=== PATIENT | male | born 1980 | race Caucasian/White ===

== ENCOUNTER 2023-01-29 10:07 | Outpatient (CLI) | payer OTHER, SELFPAY ==
--- NOTE | 2023-01-29 10:15 | MR_ITS ---
WS: [id number] MRI BRAIN WITH AND WITHOUT CONTRAST HISTORY: R29.90 - Unspecified symptoms and signs involving the nervous system. Headaches and dizzines s. COMPARISON: None available. TECHNIQUE: Multiplanar imaging performed through the brain with MultiHance 20 ml's IV. No acute infarcts are seen. Douglas-white matter differentiation is well preserved. There is increased T 2 signal bilaterally in the cerebral peduncles but much greater on the LEFT. No additional infarcts. No additional significant small vessel ischemic disease. Ventricles and extra-axial spaces are normal. Clivus and pituitary gland are normal. Visualized posterior fossa and brainstem are also normal. Postcontrast images are negative for masses or vascular malformations. Dural venous sinuses are normal. Paranasal sinuses: Moderate mucous retention cyst in the RIGHT maxillary sinus. No air-fluid levels. Mastoid air cells: Normal. Calvarium and scalp: Normal. MR/MR head wo/w con [id number] IMPRESSION: 1. No acute diffusion abnormalities or enhancing mass. 2. Focal increased T2 signal and FLAIR signal in the cerebral peduncles LEFT g reater than RIGHT suspicious for prior small lacunar infarcts. 3. No additional infarcts. 4. RIGHT maxillary sinus mucous retention cyst.
[2023-01-29] MEDS: gadobenate dimeglumine 20 mL vial IV (10:51)
== END 2023-01-29 10:08 | disposition home or self-care (01) ==
PROVIDERS: PCP Psychiatry & Neurology Neurology; Visit Provider Psychiatry & Neurology Neurology
DX: R29.90 Unspecified symptoms and signs involving the nervous system (principal); E55.9 Vitamin D deficiency, unspecified; J34.1 Cyst and mucocele of nose and nasal sinus; G93.9 Disorder of brain, unspecified
CPT/HCPCS: 36415; 70553; 80053; 82306; 82746; 83735; 83921; 84439; 84481; 85025; 85651; 86140; 86160; 86162; 86235; 86255; 86376; 99203; A9577

== ENCOUNTER 2023-02-03 11:21 | Outpatient (CLI) | payer OTHER, SELFPAY ==
--- NOTE | 2023-02-03 11:00 | MR_ITS ---
WS: [id number] MRI CERVICAL SPINE NONCONTRAST TECHNIQUE: Sagittal T1, T2 and STIR imaging. Axial T2, gradient, and fiesta imaging. Post gadolinium imaging obtained with fat saturation technique. CLINICAL INFORMATION: R29.90 - Unspecified symptoms and signs involving the ner... COMPARISON: None. FINDINGS: Mild cervical curve. Disc bulging worse at C3-C4 C5-C6 and C6-C7. Disc bulging C6-C7 with slight inde ntation on cervical cord with moderate central canal stenosis. Cord signal remains normal. No abnorma l gadolinium enhancement. No enhancing cord lesions. C2-C3: Normal. C3-C4: Mild disc osteophyte complex with slight indentation on cervical cord. Mild central canal sten osis. Mild facet arthropathy. Mild RIGHT and no LEFT foraminal narrowing. C4-C5: Disc osteophyte complex with endplate ridging. Moderate RIGHT and mild LEFT foraminal narrowin g. Mild facet arthropathy. C5-C6: Disc osteophyte complex with a tiny shallow central protrusion. Slight indentation on cervical cord. Mild central canal stenosis. Mild LEFT greater than RIGHT bony foraminal narrowing. C6-C7: Central disc osteophyte complex with indentation on the cervical cord. Moderate central canal stenosis. Moderate to severe bilateral bony foraminal narrowing. Mild facet arthropathy. C7-T1: Mild LEFT and no significant RIGHT foraminal narrowing. Spinal canal is patent. Visualized brain stem structures: Normal. Prevertebral soft tissues: Normal. MR/MR cervical spine wo/w [id number] IMPRESSION: 1. No abnormal gadolinium enhancement. Cord signal is normal. No enhancing cer vical cord lesions. 2. Moderate central canal stenosis C6-C7 with indentation and slight flattenin g of the cervical cord. Moderate to severe bilateral bony foraminal narrowing a t this level. 3. Mild central canal stenosis C3-C4, C5-C6 worse at C5-C6 with slight indenta tion on cervical cord. 4. Otherwise mild to moderate bony foraminal narrowing worse at RIGHT C3-C4, R IGHT C4-C5, LEFT C5-C6 and LEFT C7-T1
[2023-02-03] MEDS: gadobenate dimeglumine 20 mL vial IV (12:49)
== END 2023-02-03 11:22 | disposition home or self-care (01) ==
PROVIDERS: PCP Psychiatry & Neurology Neurology; Visit Provider Psychiatry & Neurology Neurology
DX: M48.03 Spinal stenosis, cervicothoracic region (principal); R29.90 Unspecified symptoms and signs involving the nervous system
CPT/HCPCS: 72156; A9577

== ENCOUNTER → 2023-04-27 12:35 | Outpatient (BNVA) | payer OTHER, SELFPAY | PROVIDERS: PCP Psychiatry & Neurology Neurology; Visit Provider Psychiatry & Neurology Neurology | DX: E55.9 Vitamin D deficiency, unspecified (principal); Z86.73 Personal history of transient ischemic attack (TIA), and cerebral infarction without residual deficits; M50.30 Other cervical disc degeneration, unspecified cervical region | CPT/HCPCS: 99212 ==

== ENCOUNTER → 2023-11-04 11:01 | Outpatient (BNVA) | payer OTHER, SELFPAY | PROVIDERS: PCP Psychiatry & Neurology Neurology; Visit Provider Psychiatry & Neurology Neurology | DX: Z86.73 Personal history of transient ischemic attack (TIA), and cerebral infarction without residual deficits (principal); E53.8 Deficiency of other specified B group vitamins; R55 Syncope and collapse | CPT/HCPCS: 36415; 82607; 99213 ==

== ENCOUNTER → 2023-11-11 07:36 | Outpatient (BNVA) | payer OTHER, SELFPAY | PROVIDERS: Visit Provider Psychiatry & Neurology Neurology | DX: R55 Syncope and collapse (principal) | CPT/HCPCS: 95813; 95819 ==

== ENCOUNTER 2023-11-12 13:28 | Outpatient (CLI) | payer OTHER, SELFPAY ==
--- NOTE | 2023-11-12 13:45 | MR_ITS ---
WS: [id number] MRA ANGIOGRAPHY [place] HISTORY: G93.9 - Disorder of brain, unspecified COMPARISON: None available. TECHNIQUE: 3-D MR angiography is performed of the [place]. All images are reviewed including source images. Distal vertebral and basilar arteries are intact with no significant stenosis or plaque. Posterior ce rebral arteries are normal course and caliber. Posterior communicating arteries are both small calibe r. Intracranial carotid arteries are normal size. No aneurysm or occlusion. Small caliber M1 segments. V raphael small caliber and irregular RIGHT M1 segment. There is attempts at revascularization through the M1 region. There is flow identified in the distal M2 and M3 segments but very small caliber vessels. The LEFT M1 segment is smaller caliber also but it is patent and there is better distal flow in the M 2 and M3 segments. Anterior cerebral arteries are normal. Small caliber but patent LEFT A1 segment. IMPRESSION: 1. Abnormal RIGHT middle cerebral artery. Very small caliber and irregular lumen of the RIGHT middle cerebral artery with a paucity of vessels distally. High-grade stenosis RIGHT M1 segment with paucit y of vessels distally. Consider atherosclerotic disease and vasculitis as possible etiologies. Cathet er directed angiogram may be of benefit in this patient. 2. LEFT middle cerebral artery is also smaller caliber than expected for this age group but much bet ter flow to the distal territory.
--- NOTE | 2023-11-12 14:30 | MR_ITS ---
WS: [id number] MRA CAROTID ARTERIES HISTORY: G93.9 - Disorder of brain, unspecified COMPARISON: None available. TECHNIQUE: MRA is performed with intravenous gadolinium. MIP and source images are reviewed. Right: Normal cervical common, internal and external carotid arteries. No stenosis. Left: Normal cervical common, internal and external carotid arteries. No stenosis. No occlusion. Subclavian Arteries: Both subclavian arteries are identified with normal caliber. Vertebral Arteries: Normal. LEFT vertebral artery is slightly greater caliber than the RIGHT. IMPRESSION: Normal MR angiogram carotid arteries. There is no significant stenosis.
[2023-11-12] MEDS: gadobenate dimeglumine 20 mL vial IV (14:43)
== END 2023-11-12 13:29 | disposition home or self-care (01) ==
LOC: RAD 13:29
PROVIDERS: Visit Provider Psychiatry & Neurology Neurology
DX: I66.01 Occlusion and stenosis of right middle cerebral artery (principal); G93.9 Disorder of brain, unspecified; R55 Syncope and collapse
CPT/HCPCS: 70544; 70548; A9577

== ENCOUNTER 2023-12-15 08:04 | Outpatient (CLI) | payer OTHER, SELFPAY ==
--- NOTE | 2023-12-15 08:30 | CT_ITS ---
WS: [email or web address] CT ANGIOGRAM CEREBRAL ARTERIES HISTORY: I63.81 - Other cerebral infarction due to occlusion or st... TECHNIQUE: Pre and postcontrast imaging through the brain. CT angiogram is performed of the cerebral arteries. During arterial injection imaging is obtained from the skull vertex to the skull base in 1. 25 mm imaging. Coronal and sagittal reformats are submitted. Additional multi planar reformats of the cerebral arteries are submitted, MIP imaging also reviewed. All CT scans at [facility] use at least one of these dose optimization techniques: automated exposure control; mA and/or kV adjustme nt per patient size (includes targeted exams where dose is matched to clinical indication); or iterat pat reconstruction. CONTRAST: Omnipaque 350; 100 mL IV. DLP: 1530.97 mGy.cm COMPARISON: 11/12/2023 MR angiogram Noncontrast brain first performed is negative. No hemorrhage or mass effect. Intracranial vertebral arteries: Normal with no significant atherosclerosis. Basilar artery: No significant stenosis or occlusion. No aneurysm. Intracranial Internal carotid arteries: Demonstrates no significant stenosis or plaque. Middle cerebral arteries: Both middle cerebral arteries are patent. Mild narrowing of the RIGHT MCA a s seen on the prior MR angiogram. The lumen is patent. This may be due mild atherosclerotic disease o r developmental. No intraluminal thrombus. There is no aneurysm. Anterior cerebral arteries and ACOM: Hypoplastic LEFT A1 segment but it is patent. Dominant RIGHT A1 segment. No aneurysms. Posterior cerebral arteries and PCOM's: Normal. Dural venous sinuses are normally enhancing. Mastoid air cells: Normal. Paranasal sinuses: Normal. Calvarium: Normal. IMPRESSION: 1. No cerebral artery aneurysm. 2. Mild irregularity and narrowing of the RIGHT middle cerebral artery as seen on the prior MRA. No acute thrombus. This may be developmental, due to atherosclerosis disease or even vasculitis. There i s no aneurysm or interval change.
[2023-12-15] MEDS: iohexol 350 mg/mL 500 mL Btl (per mL) IV (08:49)
== END 2023-12-15 08:05 | disposition home or self-care (01) ==
LOC: RAD 08:04
PROVIDERS: Visit Provider Psychiatry & Neurology Neurology
DX: I63.81 Other cerebral infarction due to occlusion or stenosis of small artery (principal); R55 Syncope and collapse
CPT/HCPCS: 70496; Q9967